=== PATIENT | male | born 1965 | race Caucasian/White ===

== ENCOUNTER → 2020-06-14 11:22 | Outpatient (CLI) | payer BC, SELFPAY ==
[2020-06-14 12:47] LABS: Basophils # 0.1 K/mm3 (0-0.2); Basophils % 1.1 % (0.1-2.0); Eosinophils # 0.1 K/mm3 (0.0-0.4); Eosinophils % 0.9 % (0.1-12.0); Hematocrit 49.6 % (42.0-52.0); Hemoglobin 16.6 g/dL (14.1-18.0); Lymphocytes # 1.5 K/mm3 (0.7-4.5); Lymphocytes % 22.2 % (10-50); Mean Corpuscular HGB Conc 33.4 g/dL (31.8-35.4); Mean Corpuscular Volume 89.8 fl (80-94); Mean Platelet Volume 7.4 fl (7.4-10.4); Monocytes # 0.6 K/mm3 (0.1-1.0); Monocytes % 9.2 % (1.7-9.3); Neutrophils # 4.6 K/mm3 (1.8-7.8); Neutrophils % 66.6 % (37.0-80.0); Platelet Count 228 K/mm3 (142-424); Red Blood Count 5.53 M/mm3 (4.60-6.20); Red Cell Distribution Width 13.3 % (11.5-17.5); White Blood Count 6.9 K/mm3 (4.8-10.8)
== END ==
PROVIDERS: PCP Family Medicine; Visit Provider Family Medicine
DX: Z20.828 Contact with and (suspected) exposure to other viral communicable diseases (principal); U07.1 COVID-19
CPT/HCPCS: 36415; 85025; 87275; 87276; U0003

== ENCOUNTER 2020-06-21 11:43 | Inpatient (IN) | payer BC, SELFPAY ==
[2020-06-21] VITALS (12 sets, daily range): BP systolic 119–144; BP diastolic 71–90; PULSE 69–99; RESP 15–20; TEMP 36.6–37.2; O2SAT 90–95; BMI 25.8; BMI 24.5
--- NOTE | 2020-06-21 12:09 | HMH.EDGENADL ---
ED Disposition Clinical Impression: COVID-19, Acute respiratory failure with hypoxia, Viral syndrome Disposition: Admitted As Inpatient Condition on Discharge: Fair Referrals: PCP,No [Primary Care Provider] - - Critical Care Critical Care Time: No Attestation: On 06/21/20, the high probability of a clinically significant, sudden or life threatening deterioration of the following system(s) required my full and direct attention, intervention and personal management. The time I documented below is in addition to time spent performing reported procedures but includes the following listed in this critical care notation. Medical Decision Making - Medical Records Medical records reviewed: Yes: I reviewed the patient's medical records. - Brooks Inquiry Pt receiving controlled substance: No Vital Signs: 06/21/20 11:43 06/21/20 12:10 06/21/20 12:32 Temperature 99.0 F Temperature Source Oral Pulse Rate [Right Radial] 95 H 99 H 85 Respiratory Rate 17 Blood Pressure [Right Arm] 123/71 142/88 H 144/90 H Blood Pressure Mean [Right Arm] 88 106 108 Blood Pressure Source [Right Arm] Automatic Cuff Automatic Cuff Blood Pressure Position [Right Arm] Sitting Sitting 02 Sat by Pulse Oximetry 92 L 92 L 90 L Oxygen Delivery Method Room Air Room Air Room Air Oxygen Flow Rate (LPM) 06/21/20 13:00 06/21/20 13:51 06/21/20 14:16 Temperature Temperature Source Pulse Rate [Right Radial] 80 80 72 Respiratory Rate Blood Pressure [Right Arm] 133/84 137/75 119/86 Blood Pressure Mean [Right Arm] 100 95 97 Blood Pressure Source [Right Arm] Automatic Cuff Automatic Cuff Automatic Cuff Blood Pressure Position [Right Arm] Sitting Sitting Sitting 02 Sat by Pulse Oximetry 93 L 92 L 92 L Oxygen Delivery Method Nasal Cannula Nasal Cannula Nasal Cannula Oxygen Flow Rate (LPM) 3 2 2 - Lab Data Lab Results 06/21/20 11:46: WBC 8.8, RBC 5.44, Hgb 16.1, Hct 47.5, MCV 87.3, MCH 29.7, MCHC 34.0, RDW 12.9, Plt Count 295, MPV 7.9, Neut % (Auto) 79.8, Lymph % (Auto) 15.4, Jay % (Auto) 4.1, Eos % (Auto) 0.1, Baso % (Auto) 0.5, Neut # (Auto) 7.1, Lymph # (Auto) 1.4, Jay # (Auto) 0.4, Eos # (Auto) 0.0, Baso # (Auto) 0.0 06/21/20 11:46: Sodium 136, Potassium 3.9, Chloride 98, Carbon Dioxide 28, Anion Gap 13.9, BUN 13, Creatinine 1.00, Estimated Creat Clear 93, Estimated GFR 78, Est GFR ( Amer) 95, Glucose 102 H, Calcium 9.5, Total Bilirubin 0.7, AST 55, ALT 66, Alkaline Phosphatase 198 H, Total Protein 8.2, Albumin 4.6, Globulin 3.6 H, Albumin/Globulin Ratio 1.3 06/21/20 11:46: SARS-CoV-2 IgG Ab (Rapid) Positive A, SARS-CoV-2 IgM Ab (Rapid) Negative Result diagrams: 06/21/20 11:46 06/21/20 11:46 Orders (Tests/Meds): ED MEDICATIONS Generic Name Dose Route Start Last Admin Trade Name Freq PRN Reason Stop Dose Admin Acetaminophen 650 mg 06/21/20 14:22 Acetaminophen 325mg Tab PO 07/21/20 14:21 Q6HP PRN Mild pain,fever,headache Ascorbic Acid 500 mg 06/21/20 17:00 Ascorbic Acid 500mg Tab PO 07/21/20 16:59 QID LUKE Enoxaparin Sodium 40 mg 06/21/20 14:30 Enoxaparin 40mg/0.4ml Syringe SQ 07/21/20 14:29 DAILY LUKE Ergocalciferol 50,000 unit 06/21/20 14:30 Ergocalciferol 50,000 Units (1.25mg) Capsule PO 07/21/20 14:29 WEEKLY LUKE Famotidine 20 mg 06/21/20 21:00 Famotidine 20mg Tablet PO 07/21/20 20:59 BID LUKE Sodium Chloride 1,000 mls @ 100 mls/hr 06/21/20 14:30 Sod Chlor 0.9% 1000ml Bag IV 07/21/20 14:29 .Q10H LUKE Levofloxacin/Dextrose 750 mg in 150 mls @ 100 mls/hr 06/21/20 14:30 Levofloxacin 750mg/150ml Premix IV 07/05/20 14:29 Q24H LUKE Protocol Zinc Sulfate 220 mg 06/21/20 14:30 Zinc Sulfate 220mg Capsule PO 07/21/20 14:29 DAILY LUKE Discontinued Medications Generic Name Dose Route Start Last Admin Trade Name Freq PRN Reason Stop Dose Admin Dexamethasone Sodium Phosphate 10 mg 06/21/20 13:42 06/21/20 14:21
[2020-06-21 12:26] LABS: Alanine Aminotransferase 66 U/L (12-78); Albumin Level 4.6 g/dl (3.5-5.0); Albumin/Globulin Ratio 1.3 (1.1-1.8); Alkaline Phosphatase 198 U/L (38-126); Anion Gap 13.9 mEq/L (5-15); Aspartate Amino Transferase 55 U/L (17-59); Basophils % 0.5 % (0.1-2.0); Bilirubin,Total 0.7 mg/dl (0.2-1.3); Blood Urea Nitrogen 13 mg/dl (9-20); Calcium 9.5 mg/dl (8.4-10.2); Carbon Dioxide 28 mmol/L (22.0-30.0); Chloride 98 mmol/L (98-107); Creatinine Clearance Estimated 93 mL/min (50-200); Eosinophils % 0.1 % (0.1-12.0); Estimated Glomerular Filt Rate 78 ml/min (>60); GFR (African American) 95 ML/MIN (>60); Globulin 3.6 g/dL (1.3-3.2); Glucose 102 mg/dl (74-100); Hematocrit 47.5 % (42.0-52.0); Hemoglobin 16.1 g/dL (14.1-18.0); Lymphocytes # 1.4 K/mm3 (0.7-4.5); Lymphocytes % 15.4 % (10-50); Mean Corpuscular Hemoglobin 29.7 pg (27.0-31.2); Mean Corpuscular Volume 87.3 fl (80-94); Mean Platelet Volume 7.9 fl (7.4-10.4); Monocytes # 0.4 K/mm3 (0.1-1.0); Monocytes % 4.1 % (1.7-9.3); Neutrophils # 7.1 K/mm3 (1.8-7.8); Neutrophils % 79.8 % (37.0-80.0); Platelet Count 295 K/mm3 (142-424); Potassium 3.9 mmoL/L (3.5-5.1); Red Blood Count 5.44 M/mm3 (4.60-6.20); Red Cell Distribution Width 12.9 % (11.5-17.5); Sodium 136 mmol/L (136-145); Total Protein,Serum 8.2 g/dl (6.3-8.2); White Blood Count 8.8 K/mm3 (4.8-10.8)
--- NOTE | 2020-06-21 13:14 | XR_ITS ---
PROCEDURE: XR CHEST PORTABLE CLINICAL HISTORY: cough Positive Covid19 COMPARISON: No exams were available for comparison FINDINGS: The cardiomediastinal silhouette and pulmonary vascularity are within normal limits. Patchy density is present in the right upper and right lower lobe and left lower lobe consistent with bilateral pneumonia. No evidence of pneumothorax. No effusions. No acute bony abnormalities. IMPRESSION: Bilateral pneumonia Dictated by: Mynor Mcnair MD 06/21/2020 15:06 Mynor Mcnair MD in [place] 06/21/2020 15:06
[2020-06-21 14:16] LABS: Coronavirus 19 IgG Antibody Positive (Negative); Coronavirus 19 IgM Antibody Negative (Negative)
--- NOTE | 2020-06-21 14:21 | PC.NURSE ---
Dr lim speaking with dr hughes
[2020-06-21 14:53] LABS: Adenovirus,PCR Not Detected (NotDetected); Bordetella Pertussis Not Detected (NotDetected); Chlamydophila Pneumoniae, PCR Not Detected (NotDetected); Coronavirus 229E Not Detected (NotDetected); Coronavirus NL63 Not Detected (NotDetected); Coronavirus OC43 Not Detected (NotDetected); Coronovirus HKU1,PCR Not Detected (NotDetected); Human Metapneumovirus Not Detected (NotDetected); Influenza A, PCR Not Detected (NotDetected); Influenza AH1, 2009 Not Detected (NotDetected); Influenza AH1, PCR Not Detected (NotDetected); Influenza AH3,PCR Not Detected (NotDetected); Influenza B, PCR Not Detected (NotDetected); Mycoplasma Pneumoniae, PCR Not Detected (NotDetected); Parainfluenza 1, PCR Not Detected (NotDetected); Parainfluenza 2, PCR Not Detected (NotDetected); Parainfluenza 3, PCR Not Detected (NotDetected); Parainfluenza 4, PCR Not Detected (NotDetected); Respiratory Syncytial Virus Not Detected (NotDetected); Rhinovirus/Enterovirus Not Detected (NotDetected)
[2020-06-21 15:25] LABS: Lactic Acid 0.7 mmol/L (0.7-2.1)
--- NOTE | 2020-06-21 15:36 | HMH.PHAVTE ---
[facility] Pharmacy VTE Monitoring - Patient Demographics Admission date: 06/21/20 Report Date: 06/21/20 Time: 15:36 Allergies/Adverse Reactions: Patient Allergies No Known Allergies Allergy (Verified 06/21/20 11:49) Height: 1.73 m Weight: 77.111 kg Patient Problems: Current Active Problems COVID-19 (Acute) Acute respiratory failure with hypoxia (Acute) Viral syndrome (Acute) - VTE Risk Labs: VTE Related Lab Results Hgb 16.1 g/dL (14.1-18.0) 06/21/20 11:46 Hct 47.5 % (42.0-52.0) 06/21/20 11:46 Plt Count 295 K/mm3 (142-424) 06/21/20 11:46 BUN 13 mg/dl (9-20) 06/21/20 11:46 Creatinine 1.00 mg/dl (0.66-1.25) 06/21/20 11:46 Estimated Creat Clear 93 mL/min (50-200) 06/21/20 11:46 - Prophylaxis VTE Prophylaxis Ordered?: Yes Types of VTE Prophylaxis: TEDS Knee High, Pharmacological Location of Applied Device: Bilateral Lower Extremeties Pharmacologic Type: Enoxaparin
--- NOTE | 2020-06-21 16:21 | HMH.HP ---
*Admission Date: 06/21/20 <Gosia Sanchez 06/21/20 16:39> *Chief complaint: headache <Gosia Sanchez 06/21/20 16:39> *History of present illness: This is a 54-year-old male presenting to the emergency department with nausea, vomiting and headache. Patient has had the symptoms for last 10 days. He was recently diagnosed with coronavirus. Since that time he has been having the symptoms. His headache is frontal in nature. Nonradiating. States it has been persistent since his diagnosis. He has also had some vomiting. There has been no hematemesis. He has had some mild diarrhea as well. He is having some abdominal cramping, however no focal tenderness. He denies any chest pain or shortness of breath. He has been having myalgias as well as fevers and chills. No cough. Denies any focal weakness, neck pain or change in vision. (above as per ER physician) The patient did do a telehealth with Dr. Fitch on 06/14/20 which is when he was tested for Covid 19. He called back on 06/19 with complaints of a MEIER and was prescribed fioricet. This did not help and he called back today and Dr. Fitch sent a medrol pack, however he could not get in contact with the patient as the patient had already gone to the ER. He was found to have bilateral pneumonia in the ER and was admitted. <Gosia Sanchez 06/21/20 16:39> [facility] History I have reviewed the patient's past medical history: Yes <Gosia Sanchez 06/21/20 16:39> Medical History: Reports:: Depression, Gastroesophageal Reflux Disease(GERD), Hyperlipidemia Denies:: Diabetes Mellitus Type 1, Diabetes Mellitus Type 2 <Gosia Sanchez 06/21/20 16:39> *Have you ever received a pneumonia vaccine?: No <Gosia Sanchez 06/21/20 16:39> *Have you received a flu vaccine this season?: Yes <Gosia Sanchez 06/21/20 16:39> Laterality Cases: Bilateral: Tonsillectomy <Gosia Sanchez 06/21/20 16:39> - *Social History Smoking Status: Never smoker <Gosia Sanchez 06/21/20 16:39> Alcohol Intake: never <Gosia Sanchez 06/21/20 16:39> *Occupational Status:: employed <Gosia Sanchez 06/21/20 16:39> *Travel in the last 8 weeks: None <Gosia Sanchez 06/21/20 16:39> Family Hx:: Hyperlipidemia <Gosia Sanchez 06/21/20 16:39> Review of Systems - Constitutional Reports chills, Reports fever(s), Reports malaise <Gosia Sanchez 06/21/20 17:04> - Eyes Denies blurry vision, Denies double vision <Gosia Sanchez 06/21/20 17:04> - ENT Denies nasal congestion, Denies sore throat <Gosia Sanchez 06/21/20 17:04> - *Cardiovascular Denies chest pain, Denies shortness of breath <Gosia Sanchez 06/21/20 17:04> - *Respiratory Denies cough, Denies shortness of breath <Gosia Sanchez 06/21/20 17:04> - *Gastrointestinal Reports loose stools, Reports nausea, Reports vomiting <Gosia Sanchez 06/21/20 17:04> - *Genitourinary Denies difficulty urinating, Denies painful urination <Gosia Sanchez 06/21/20 17:04> - *Musculoskeletal Reports body aches <Gosia Sanchez 06/21/20 17:04> - *Neurologic Reports headache(s), Reports weakness <Gosia Sanchez 06/21/20 17:04> Meds Home Medications Medication Instructions Recorded Confirmed Type Omeprazole [Omeprazole 40mg 40 mg PO DAILY 06/21/20 06/21/20 History Capsule] Sertraline HCl [Zoloft 100mg 100 mg PO DAILY 06/21/20 06/21/20 History tablet] <Beau Maddox 06/21/20 18:43> Allergies Allergy/AdvReac Type Severity Reaction Status Date / Time No Known Allergies Allergy Verified 06/21/20 11:49 <Beau Maddox - 06/21/20 18:43> Exam Vital signs and Labs for Last 24 Hours: Temp Pulse Resp BP Pulse Ox 98.2 F 72 15 128/84 95 06/21/20 16:05 06/21/20 16:05 06/21/20 16:05 06/21/20 16:05 06/21/20 16:51 Laboratory Results - last 24 hr 06/21/20 11:46: WBC 8.8, RBC 5.44, Hgb 16.1, Hct 47.5, MCV 87.3, MCH 29.7, MCHC 34.0, RDW 12.9, Plt Count 295, MPV 7.9, Neut % (Auto) 79.8, Lymp
[2020-06-21 16:38] LABS: Coronavirus 19, PCR Detected (NotDetected)
--- NOTE | 2020-06-21 18:07 | PC.NURSE ---
Patient is resting in bed. Patient appears to be in good spirits. Admitted from the ER for covid pneumonia on 2l of oxygen. Neurologically patient is alert and oriented x 4. Patient is on room air currently satting' 93%. Non-productive cough present. GI: Patients appetite has been good. No nausea/vomiting/diarrhea since coming in. : Patient has been using toilet in room. Activity: Patient is independent, ambulates well. Patient currently reports no issues or concerns. Will continue to monitor patient,
[2020-06-22] VITALS (9 sets, daily range): BP systolic 111–138; BP diastolic 73–90; PULSE 57–89; RESP 18–20; TEMP 36.3–37.4; O2SAT 90–96; BMI 24.3
[2020-06-22 05:54] LABS: Chloride 108 mmol/L (98-107); Sodium 139 mmol/L (136-145)
--- NOTE | 2020-06-22 05:56 | PC.NURSE ---
At beginning of shift pt. c/o h/a rating 8/10 (see md notification), tx with toradol, effectiveness reported. Pt. has not c/o n/v/d, or dizziness. Does report a little SOA. On 2L nc with o2 sat 92-95% while awake and 89-91% at rest. Noted to have dry, intermittent nonproductive coughing episodes with movement.
[2020-06-22 05:57] LABS: Blood Urea Nitrogen 16 mg/dl (9-20); Carbon Dioxide 25 mmol/L (22.0-30.0); Creatinine Clearance Estimated 100 mL/min (50-200); Estimated Glomerular Filt Rate 88 ml/min (>60); GFR (African American) 107 ML/MIN (>60); Glucose 117 mg/dl (74-100)
[2020-06-22 05:58] LABS: Basophils % 0.2 % (0.1-2.0); Hematocrit 40.8 % (42.0-52.0); Lymphocytes # 1.2 K/mm3 (0.7-4.5); Lymphocytes % 15.7 % (10-50); Mean Corpuscular HGB Conc 33.3 g/dL (31.8-35.4); Mean Corpuscular Hemoglobin 29.3 pg (27.0-31.2); Mean Corpuscular Volume 87.8 fl (80-94); Mean Platelet Volume 8.1 fl (7.4-10.4); Monocytes # 0.4 K/mm3 (0.1-1.0); Monocytes % 5.4 % (1.7-9.3); Neutrophils # 6.2 K/mm3 (1.8-7.8); Neutrophils % 78.7 % (37.0-80.0); Platelet Count 305 K/mm3 (142-424); Red Blood Count 4.65 M/mm3 (4.60-6.20); Red Cell Distribution Width 13.4 % (11.5-17.5); White Blood Count 7.8 K/mm3 (4.8-10.8)
[2020-06-22 06:08] LABS: Hemoglobin 13.6 g/dL (14.1-18.0)
[2020-06-22 06:19] LABS: Anion Gap 10.3 mEq/L (5-15); Potassium 4.3 mmoL/L (3.5-5.1)
[2020-06-22 06:43] LABS: Calcium 8.6 mg/dl (8.4-10.2)
--- NOTE | 2020-06-22 08:41 | HMH.ACPN2 ---
Internal Medicine - PN: Subj *Date: 06/22/20 *Time: 08:41 Interval history: Patient feels a little better this morning. He has less headache, still with some shortness of breath and cough. Exam Vital signs and Labs for Last 24 Hours: Temp Pulse Resp BP Pulse Ox 99.3 F 89 18 126/79 93 L 06/22/20 08:00 06/22/20 08:00 06/22/20 08:00 06/22/20 08:00 06/22/20 08:00 Laboratory Results - last 24 hr 06/21/20 11:46: WBC 8.8, RBC 5.44, Hgb 16.1, Hct 47.5, MCV 87.3, MCH 29.7, MCHC 34.0, RDW 12.9, Plt Count 295, MPV 7.9, Neut % (Auto) 79.8, Lymph % (Auto) 15.4, [place] % (Auto) 4.1, Eos % (Auto) 0.1, Baso % (Auto) 0.5, Neut # (Auto) 7.1, Lymph # (Auto) 1.4, [place] # (Auto) 0.4, Eos # (Auto) 0.0, Baso # (Auto) 0.0 06/21/20 11:46: Sodium 136, Potassium 3.9, Chloride 98, Carbon Dioxide 28, Anion Gap 13.9, BUN 13, Creatinine 1.00, Estimated Creat Clear 93, Estimated GFR 78, Est GFR ( Amer) 95, Glucose 102 H, Calcium 9.5, Total Bilirubin 0.7, AST 55, ALT 66, Alkaline Phosphatase 198 H, Total Protein 8.2, Albumin 4.6, Globulin 3.6 H, Albumin/Globulin Ratio 1.3 06/21/20 11:46: SARS-CoV-2 IgG Ab (Rapid) Positive A, SARS-CoV-2 IgM Ab (Rapid) Negative 06/21/20 14:40: Chlamy pneumoniae PCR Not detected, Adenovirus (PCR) Not detected, B. pertussis DNA (PCR) Not detected, Coronavirus OC43 (PCR) Not detected, Coronavirus HKU1 (PCR) Not detected, Coronavirus 229E (PCR) Not detected, SARS-CoV-2 (PCR) Detected A, Coronavirus NL63 (PCR) Not detected, Human Metapneumovir PCR Not detected, Influenza A (H1) PCR Not detected, Influ A (H1N1/09) PCR Not detected, Influenza A (H3) PCR Not detected, Influenza Type A (PCR) Not detected, Influenza Type B (PCR) Not detected, M. pneumoniae (PCR) Not detected, Parainfluenza 1 (PCR) Not detected, Parainfluenza 2 (PCR) Not detected, Parainfluenza 3 (PCR) Not detected, Parainfluenza 4 (PCR) Not detected, RSV (PCR) Not detected, Entero/Rhino (PCR) Not detected 06/21/20 14:50: Lactate 0.7 06/22/20 05:10: WBC 7.8, RBC 4.65, Hgb 13.6 L D, Hct 40.8 L, MCV 87.8, MCH 29.3, MCHC 33.3, RDW 13.4, Plt Count 305, MPV 8.1, Neut % (Auto) 78.7, Lymph % (Auto) 15.7, Henderson % (Auto) 5.4, Eos % (Auto) 0.0 L, Baso % (Auto) 0.2, Neut # (Auto) 6.2, Lymph # (Auto) 1.2, Henderson # (Auto) 0.4, Eos # (Auto) 0.0, Baso # (Auto) 0.0 06/22/20 05:10: Sodium 139, Potassium 4.3, Chloride 108 H, Carbon Dioxide 25, Anion Gap 10.3, BUN 16, Creatinine 0.90, Estimated Creat Clear 100, Estimated GFR 88, Est GFR ( Amer) 107, Glucose 117 H, Calcium 8.6 Vital Signs - 24 hr 06/21/20 11:43 06/21/20 12:10 06/21/20 12:32 Temperature 99.0 F Pulse Rate Pulse Rate [Right Radial] 95 H 99 H 85 Respiratory Rate 17 Blood Pressure Blood Pressure [Right Arm] 123/71 142/88 H 144/90 H 02 Sat by Pulse Oximetry 92 L 92 L 90 L 06/21/20 13:00 06/21/20 13:51 06/21/20 14:16 Temperature Pulse Rate Pulse Rate [Right Radial] 80 80 72 Respiratory Rate Blood Pressure Blood Pressure [Right Arm] 133/84 137/75 119/86 02 Sat by Pulse Oximetry 93 L 92 L 92 L 06/21/20 15:00 06/21/20 15:30 06/21/20 16:00 Temperature 98.9 F Pulse Rate Pulse Rate [Right Radial] 71 72 69 Respiratory Rate 20 Blood Pressure Blood Pressure [Right Arm] 127/81 128/84 137/86 02 Sat by Pulse Oximetry 93 L 93 L 93 L 06/21/20 16:05 06/21/20 16:51 06/21/20 20:00 Temperature 98.2 F 97.9 F Pulse Rate 72 Pulse Rate [Right Radial] 75 Respiratory Rate 15 20 Blood Pressure 128/84 Blood Pressure [Right Arm] 120/79 02 Sat by Pulse Oximetry 95 93 L 06/22/20 00:00 06/22/20 04:00 06/22/20 06:52 Temperature 97.6 F 98.7 F Pulse Rate Pulse Rate [Right Radial] 57 L 66 Respiratory Rate 20 20 Blood Pressure Blood Pressure [Right Arm] 111/73 138/90 02 Sat by Pulse Oximetry 96 96 92 L 06/22/20 08:00 Temperature 99.3 F Pulse Rate Pulse Rate [Right Radial] 89 Respiratory Rate 18 Blood Pressure Blood Pressure [Right Arm] 126/79 02 Sat by Puls
--- NOTE | 2020-06-22 17:01 | HMH.PHAINT ---
MEDICATION RECONCILIATION COMPLETED ON PATIENT USING EXTERNAL FILL HISTORY FROM PHARMACY. -MARISSA GRUBBS, GITAD
--- NOTE | 2020-06-22 17:34 | PC.NURSE ---
Pt is alert and oriented and able to make needs known. RR even and unlabored. NAD. CB in reach. REmains on 1.5 L NC at this time. Lungs cta, S1,S2. No bm thus far today, states he has passed flatus. Remains safe. Pt states he had a small nose bleed- which has subsided at this time. Will cont to mx. No edema noted. PRN tylenol given x 2 per mar r/t harmon. VSS Last pressure 128/87
[2020-06-23 04:00] VITALS: BP 125/83; PULSE 79; RESP 20; TEMP 37.2; O2SAT 90
--- NOTE | 2020-06-23 04:57 | PC.NURSE ---
Pt A&OX4 diminished t/o. Pt remains on RA with O2 sats 90-91. pt medicated for MEIER per SEP. pt voids per urinal. pt has rested quietly
[2020-06-23 05:11] VITALS: BMI 24.3
[2020-06-23 08:00] VITALS: BP 136/87; PULSE 80; RESP 20; TEMP 36.7; O2SAT 91
[2020-06-23 11:05] VITALS: BP 145/88; PULSE 70; RESP 20; TEMP 36.9; O2SAT 91
--- NOTE | 2020-06-23 12:33 | HMH.ACPN2 ---
Internal Medicine - PN: Subj *Date: 06/23/20 *Time: 12:45 Interval history: Patient still has some SOB and O2 level drops with any exertion. Headache has improved a little, but still present. Exam Vital signs and Labs for Last 24 Hours: Temp Pulse Resp BP Pulse Ox 98.4 F 70 20 145/88 H 91 L 06/23/20 11:05 06/23/20 11:05 06/23/20 11:05 06/23/20 11:05 06/23/20 11:05 Vital Signs - 24 hr 06/22/20 16:00 06/22/20 19:39 06/22/20 20:00 Temperature 97.5 F L 98.8 F Pulse Rate [Right Radial] 74 74 Respiratory Rate 18 18 Blood Pressure [Right Arm] 128/87 133/90 02 Sat by Pulse Oximetry 94 L 90 L 90 L 06/22/20 23:53 06/23/20 04:00 06/23/20 08:00 Temperature 98.0 F 99.0 F 98.1 F Pulse Rate [Right Radial] 79 79 80 Respiratory Rate 18 20 20 Blood Pressure [Right Arm] 124/87 125/83 136/87 02 Sat by Pulse Oximetry 90 L 90 L 91 L 06/23/20 11:05 Temperature 98.4 F Pulse Rate [Right Radial] 70 Respiratory Rate 20 Blood Pressure [Right Arm] 145/88 H 02 Sat by Pulse Oximetry 91 L I & O for Last 24 hours: Intake & Output 06/20/20 06/21/20 06/22/20 06/23/20 23:59 23:59 23:59 23:59 Intake Total 600 / 600 2645 / 2645 360 / 360 Output Total 825 / 1025 2024 700 / 700 Balance -225 / -425 620 / 620 -340 / -340 Weight 166 lb 4 oz 164 lb 9 oz 164 lb 5 oz - Constitutional no acute distress - *Routine HEENT Exam Head: Present: normocephalic Eye: Present: EOMI, PERRL ENT: Present: mucous membranes moist - *Routine Neck Exam Present: supple. Absent: lymphadenopathy - *Routine Respiratory Exam Present: crackles (few bibasilar). Absent: wheezes - *Routine Cardiovascular Exam Present: RRR - *Routine Abdominal Exam Present: soft, normoactive bowel sounds. Absent: tenderness - *Routine Extremities Exam Absent: cyanosis, clubbing, edema - *Routine Skin Exam Present: warm. Absent: rash - *Routine Neurological Exam Present: alert, oriented X3 Assessment and Plan (1) Bilateral pneumonia Status: Acute Category: Medical Code(s): J18.9 - Pneumonia, unspecified organism (2) COVID-19 Status: Acute Category: Medical Code(s): U07.1 - COVID-19 (3) Headache Status: Acute Category: Medical Code(s): R51.9 - Headache, unspecified (4) Viral syndrome Status: Acute Category: Medical Code(s): B34.9 - Viral infection, unspecified (5) Hypoxia Status: Acute Category: Medical Code(s): R09.02 - Hypoxemia - Assessment and plan all Dx Assessment and Plan for all problems:: Patient is slowly improving, continue current care, will add Tramadol as needed for headache.
--- NOTE | 2020-06-23 12:40 | PC.NURSE ---
This nurse made Dr. Maddox aware that pt was still c/o of a headache and states it is constant and dull. MD stated he would order something else since prn tylenol doesnt seem to be helping much. Pt states he has also been having small nose bleeds, Dr. Maddox also made aware of this. Remains on RA at this time. Remains safe, will cont to mx.
[2020-06-23 16:00] VITALS: BP 129/89; PULSE 63; RESP 20; TEMP 36.8; O2SAT 91
--- NOTE | 2020-06-23 18:07 | PC.NURSE ---
Pt is alert and oriented and able to make needs known. Remains of ra at this time and is currently 93%. Have given pt bath basin and soap, deodorant,towels,washcloths and gown to bath- he is able to do so independently. Pt has ate small amts this shift and tolerating po fluids well. PRN tramadol given per mar x 2. VSS at this time. Lungs cta, no bm- abd soft and non tender. No edema. S1 and S2 noted. CB in reach. Remains safe.
[2020-06-23 20:00] VITALS: BP 119/85; PULSE 54; RESP 19; TEMP 36.2; O2SAT 90
[2020-06-24] VITALS (10 sets, daily range): BP systolic 120–141; BP diastolic 87–90; PULSE 54–65; RESP 16–20; TEMP 36.1–36.7; O2SAT 87–94; BMI 24.2; BMI 24.1
--- NOTE | 2020-06-24 06:01 | PC.NURSE ---
Pt is A&Ox4 and has not ambulated OOB t/o shift. Pt denies the need to urinate and reports he feels very tired. Pt has continued to c/o headache t/o shift, medicated per MAR with tramadol with good relief. Pt denies any N/V/D, just reports not hungry . Pt slept well t.o the night. Pt did desat to 86% on room air and placed on NC at 1LPM O2 with good results back to low 90's. No edema noted. Very faint crackles noted to bases, clear anterior. Pt able to reach 2300ml on IS and has a good cough response. Pt denies any productive sputum this shift. Pt's HR has bee a little low this shift, mid 40s-50s while asleep. DBP has been upper 80s-90s. Pt denies any h/o HTN or bradycardia. Pt encouraged to have good PO intake. Pt's weight is about 1# less than yesterday on daily weight. Call light within reach.
[2020-06-24 06:57] LABS: Basophils # 0.1 K/mm3 (0-0.2); Basophils % 0.8 % (0.1-2.0); Chloride 104 mmol/L (98-107); Eosinophils # 0.2 K/mm3 (0.0-0.4); Eosinophils % 2.7 % (0.1-12.0); Hematocrit 42.9 % (42.0-52.0); Hemoglobin 14.6 g/dL (14.1-18.0); Lymphocytes # 1.9 K/mm3 (0.7-4.5); Lymphocytes % 28.3 % (10-50); Mean Corpuscular Hemoglobin 29.4 pg (27.0-31.2); Mean Corpuscular Volume 86.4 fl (80-94); Mean Platelet Volume 7.9 fl (7.4-10.4); Monocytes # 0.5 K/mm3 (0.1-1.0); Neutrophils # 3.9 K/mm3 (1.8-7.8); Neutrophils % 60.2 % (37.0-80.0); Platelet Count 474 K/mm3 (142-424); Red Blood Count 4.96 M/mm3 (4.60-6.20); Red Cell Distribution Width 13.2 % (11.5-17.5); Sodium 139 mmol/L (136-145); White Blood Count 6.5 K/mm3 (4.8-10.8)
[2020-06-24 07:00] LABS: Blood Urea Nitrogen 15 mg/dl (9-20); Creatinine Clearance Estimated 113 mL/min (50-200); Estimated Glomerular Filt Rate 101 ml/min (>60); GFR (African American) 122 ML/MIN (>60)
[2020-06-24 07:01] LABS: Calcium 9.1 mg/dl (8.4-10.2); Carbon Dioxide 28 mmol/L (22.0-30.0); Glucose 112 mg/dl (74-100)
--- NOTE | 2020-06-24 09:04 | HMH.ACPN2 ---
Internal Medicine - PN: Subj *Date: 06/24/20 *Time: 09:04 Interval history: Patient states he feels a little worse this morning. He is having more headache and nausea. O2 sat was low once overnight and supplemental oxygen was resumed. It has been weaned back off this morning. Exam Vital signs and Labs for Last 24 Hours: Temp Pulse Resp BP Pulse Ox 97.1 F L 63 18 141/90 H 93 L 06/24/20 08:25 06/24/20 08:27 06/24/20 08:27 06/24/20 08:25 06/24/20 08:27 Laboratory Results - last 24 hr 06/24/20 05:50: WBC 6.5, RBC 4.96, Hgb 14.6, Hct 42.9, MCV 86.4, MCH 29.4, MCHC 34.0, RDW 13.2, Plt Count 474 H D, MPV 7.9, Neut % (Auto) 60.2, Lymph % (Auto) 28.3, [place] % (Auto) 8.0, Eos % (Auto) 2.7, Baso % (Auto) 0.8, Neut # (Auto) 3.9, Lymph # (Auto) 1.9, [place] # (Auto) 0.5, Eos # (Auto) 0.2, Baso # (Auto) 0.1 06/24/20 05:50: Sodium 139, Potassium 4.0, Chloride 104, Carbon Dioxide 28, Anion Gap 11.0, BUN 15, Creatinine 0.80, Estimated Creat Clear 113, Estimated GFR 101, Est GFR ( Amer) 122, Glucose 112 H, Calcium 9.1 Vital Signs - 24 hr 06/23/20 11:05 06/23/20 16:00 06/23/20 20:00 Temperature 98.4 F 98.2 F 97.1 F L Pulse Rate [Apical] Pulse Rate [Right Radial] 70 63 54 L Respiratory Rate 20 20 19 Blood Pressure [Right Arm] 145/88 H 129/89 119/85 02 Sat by Pulse Oximetry 91 L 91 L 90 L 06/24/20 00:00 06/24/20 01:00 06/24/20 01:01 Temperature 97.7 F Pulse Rate [Apical] Pulse Rate [Right Radial] 65 Respiratory Rate 20 Blood Pressure [Right Arm] 120/87 02 Sat by Pulse Oximetry 91 L 87 L 93 L 06/24/20 04:00 06/24/20 08:25 06/24/20 08:27 Temperature 98.1 F 97.1 F L Pulse Rate [Apical] 63 Pulse Rate [Right Radial] 54 L 63 Respiratory Rate 18 18 18 Blood Pressure [Right Arm] 135/90 141/90 H 02 Sat by Pulse Oximetry 92 L 93 L 93 L I & O for Last 24 hours: Intake & Output 06/21/20 06/22/20 06/23/20 06/24/20 23:59 23:59 23:59 23:59 Intake Total 600 / 600 2645 / 2645 950 / 1350 520 / 520 Output Total 825 / 1025 2025 / 2025 1250 / 1250 Balance -225 / -425 620 / 620 -300 / 100 520 / 520 Weight 166 lb 4 oz 164 lb 9 oz 164 lb 5 oz 163 lb 6.4 oz - Constitutional no acute distress - *Routine HEENT Exam Head: Present: normocephalic Eye: Present: EOMI, PERRL ENT: Present: mucous membranes moist - *Routine Neck Exam Present: supple. Absent: lymphadenopathy - *Routine Respiratory Exam Present: crackles (bilateral). Absent: wheezes - *Routine Cardiovascular Exam Present: RRR - *Routine Abdominal Exam Present: soft, normoactive bowel sounds. Absent: tenderness - *Routine Extremities Exam Absent: cyanosis, clubbing, edema - *Routine Skin Exam Present: warm. Absent: rash - *Routine Neurological Exam Present: alert, oriented X3 Assessment and Plan (1) Bilateral pneumonia Status: Acute Category: Medical Code(s): J18.9 - Pneumonia, unspecified organism (2) COVID-19 Status: Acute Category: Medical Code(s): U07.1 - COVID-19 (3) Headache Status: Acute Category: Medical Code(s): R51.9 - Headache, unspecified (4) Viral syndrome Status: Acute Category: Medical Code(s): B34.9 - Viral infection, unspecified (5) Hypoxia Status: Acute Category: Medical Code(s): R09.02 - Hypoxemia - Assessment and plan all Dx Assessment and Plan for all problems:: Plan to repeat CXR today, continue current treatment.
--- NOTE | 2020-06-24 09:07 | XR_ITS ---
PROCEDURE: XR CHEST PORTABLE CLINICAL HISTORY: Pneumonia Follow-up Covid19 pneumonia COMPARISON: CR XR CHEST PORTABLE from 06/21/2020 FINDINGS: The cardiomediastinal silhouette and pulmonary vascularity are within normal limits. Right upper lobe, right lower lobe, and left lower lobe pneumonia once again noted overall not significantly changed considering some difference in technique and inspiration. No evidence of pneumothorax or effusion. No acute bony abnormalities. IMPRESSION: No change bilateral pneumonia Dictated by: Mynor Mcnair MD 06/24/2020 10:05 Mynor Mcnair MD in [facility] 06/24/2020 10:05
--- NOTE | 2020-06-24 17:20 | PC.NURSE ---
Addendum entered by Estrellita Wyatt RN 06/24/20 17:58: Specimen cup at bedside. Pt instructed to provide a sputum specimen. Attempts thus far have been unsuccessful. Original Note: Pt has been pleasant and cooperative this shift. A&O X4. No complaints of SOA. Pt has had frequent complaints of a headache and has been alternating Tylenol and Tramadol. Pt reports some relief, although headache is still present. Pt has also complained of mild nausea and one episode of vomiting. Pt has been medicated with Zofran per MAR with favorable results. Pt ambulates independently to/from the bathroom and throughout the room. Pt uses the urinal/toilet to void clear, dark antonia-colored urine without issue. Pt reports 1 episode of diarrhea this shift. Pt had to be placed on O2 via NC @ 2 LPM for a brief period today due to O2 sats. <90%. Pt is currently on room air with O2 sats. >90%. Lung sounds reveal faint expiratory rhonchi. Skin is C/D/I. No edema noted. Pt remains afebrile. Appetite is poor and pt only eats about 10-20% of all meals. 20 G peripheral IV in the LT AC is patent and SL. VSS. Call light within reach. Will continue to monitor.
[2020-06-25] VITALS (7 sets, daily range): BP systolic 108–125; BP diastolic 62–83; PULSE 57–69; RESP 16–17; TEMP 35.9–37.1; O2SAT 91–92; BMI 24.1
--- NOTE | 2020-06-25 08:41 | HMH.ACPN2 ---
Internal Medicine - PN: Subj *Date: 06/25/20 *Time: 08:41 Interval history: Patient with no new complaints this morning. He actually feels a little better, still with a headache. He did not need supplemental oxygen overnight. Levaquin was stopped yesterday afternoon and Rocephin and Zithromax were started. Exam Vital signs and Labs for Last 24 Hours: Temp Pulse Resp BP Pulse Ox 96.6 F L 60 16 122/81 91 L 06/25/20 07:36 06/25/20 07:36 06/25/20 07:36 06/25/20 07:36 06/25/20 07:36 Vital Signs - 24 hr 06/24/20 11:23 06/24/20 16:32 06/24/20 20:00 Temperature 97.9 F 96.9 F L 97.5 F L Pulse Rate [Apical] Pulse Rate [Right Radial] 62 61 61 Respiratory Rate 16 18 18 Blood Pressure [Right Arm] 134/88 134/88 126/90 02 Sat by Pulse Oximetry 90 L 94 L 92 L 06/24/20 20:30 06/25/20 00:00 06/25/20 04:00 Temperature 97.6 F 98.7 F Pulse Rate [Apical] Pulse Rate [Right Radial] 61 64 61 Respiratory Rate 18 16 16 Blood Pressure [Right Arm] 115/81 109/76 L 02 Sat by Pulse Oximetry 92 L 92 L 92 L 06/25/20 07:36 Temperature 96.6 F L Pulse Rate [Apical] 60 Pulse Rate [Right Radial] Respiratory Rate 16 Blood Pressure [Right Arm] 122/81 02 Sat by Pulse Oximetry 91 L I & O for Last 24 hours: Intake & Output 06/22/20 06/23/20 06/24/20 06/25/20 23:59 23:59 23:59 23:59 Intake Total 2645 / 2645 950 / 1350 1230 / 1230 Output Total 2024 / 2024 1250 / 1250 300 / 300 Balance 620 / 620 -300 / 100 930 / 930 Weight 164 lb 9 oz 164 lb 5 oz 163 lb 2.273 oz 163 lb 1 oz - Constitutional no acute distress - *Routine HEENT Exam Head: Present: normocephalic Eye: Present: EOMI, PERRL ENT: Present: mucous membranes moist - *Routine Neck Exam Present: supple. Absent: lymphadenopathy - *Routine Respiratory Exam Present: rales (bilateral, seems to have fewer today) - *Routine Cardiovascular Exam Present: RRR - *Routine Abdominal Exam Present: soft, normoactive bowel sounds. Absent: tenderness - *Routine Extremities Exam Absent: cyanosis, clubbing, edema - *Routine Skin Exam Present: warm. Absent: rash - *Routine Neurological Exam Present: alert, oriented X3 Assessment and Plan (1) Bilateral pneumonia Status: Acute Category: Medical Code(s): J18.9 - Pneumonia, unspecified organism (2) COVID-19 Status: Acute Category: Medical Code(s): U07.1 - COVID-19 (3) Headache Status: Acute Category: Medical Code(s): R51.9 - Headache, unspecified (4) Viral syndrome Status: Acute Category: Medical Code(s): B34.9 - Viral infection, unspecified (5) Hypoxia Status: Acute Category: Medical Code(s): R09.02 - Hypoxemia - Assessment and plan all Dx Assessment and Plan for all problems:: Patient seems to be slowly improving. Antibiotics changed yesterday after CXR was unchanged, no change in treatment today.
--- NOTE | 2020-06-25 11:40 | HMH.PHAINT ---
DR. TOBIN DOES WANT THIS PATIENT TO CONTINUE REMDESIVIR FOR DAYS 5-10. SPOKE WITH YONNY AT [facility].
--- NOTE | 2020-06-25 17:31 | PC.NURSE ---
Pt has been pleasant and cooperative this shift. A&O X4. No complaints of SOA. Pt has had frequent complaints of a headache and has been alternating Tylenol and Tramadol. Received order for Fioricet per Dr. Maddox and pt reports significant relief. Pt ambulates independently to/from the bathroom and throughout the room. Pt uses the urinal/toilet to void clear, dark antonia-colored urine without issue. No emesis this shift. No diarrhea this shift. Pt has remained on room air for the entire shift thus far with O2 sats. >90%. Lung sounds reveal faint expiratory rhonchi. Skin is C/D/I. No edema noted. Pt remains afebrile. Appetite has improved and pt has eaten approximately 50% of all meals today. Specimen cup still at bedside and pt attempts to provide sputum specimen have been unsuccessful. 20 G peripheral IV in the LT AC is patent and SL. VSS. Call light within reach. Will continue to monitor.
[2020-06-26] VITALS: BP 106/74; PULSE 67; RESP 16; TEMP 36.7; O2SAT 92
[2020-06-26 04:00] VITALS: BP 115/78; PULSE 61; RESP 16; TEMP 36.7; O2SAT 92
--- NOTE | 2020-06-26 04:20 | PC.NURSE ---
pt has rested well t/o shift, complained of headache at beginning of shift, treated per MAR with fiorcet with good results, no complaints of SOA or chest pain, remained on room air with O2 sat of 92%, has remained afebrile
[2020-06-26 05:00] VITALS: BMI 24.1
--- NOTE | 2020-06-26 05:23 | PC.NURSE ---
pt did complain of a headache this morning when labs were being drawn, was treated per MAR
[2020-06-26 05:39] LABS: Basophils # 0.1 K/mm3 (0-0.2); Basophils % 1.1 % (0.1-2.0); Eosinophils # 0.2 K/mm3 (0.0-0.4); Eosinophils % 3.1 % (0.1-12.0); Hematocrit 42.5 % (42.0-52.0); Hemoglobin 14.6 g/dL (14.1-18.0); Lymphocytes # 2.3 K/mm3 (0.7-4.5); Lymphocytes % 30.1 % (10-50); Mean Corpuscular HGB Conc 34.3 g/dL (31.8-35.4); Mean Corpuscular Hemoglobin 29.6 pg (27.0-31.2); Mean Corpuscular Volume 86.4 fl (80-94); Mean Platelet Volume 7.1 fl (7.4-10.4); Monocytes # 0.6 K/mm3 (0.1-1.0); Monocytes % 7.1 % (1.7-9.3); Neutrophils # 4.5 K/mm3 (1.8-7.8); Neutrophils % 58.6 % (37.0-80.0); Platelet Count 624 K/mm3 (142-424); Red Blood Count 4.92 M/mm3 (4.60-6.20); Red Cell Distribution Width 13.3 % (11.5-17.5); White Blood Count 7.7 K/mm3 (4.8-10.8)
[2020-06-26 05:44] LABS: Chloride 105 mmol/L (98-107); Potassium 4.5 mmoL/L (3.5-5.1); Sodium 139 mmol/L (136-145)
[2020-06-26 05:47] LABS: Anion Gap 10.5 mEq/L (5-15); Blood Urea Nitrogen 16 mg/dl (9-20); Carbon Dioxide 28 mmol/L (22.0-30.0); Creatinine Clearance Estimated 99 mL/min (50-200); Estimated Glomerular Filt Rate 88 ml/min (>60); GFR (African American) 107 ML/MIN (>60)
[2020-06-26 05:48] LABS: Calcium 8.9 mg/dl (8.4-10.2); Glucose 95 mg/dl (74-100)
--- NOTE | 2020-06-26 06:37 | SW/DCPLANNER ---
PATIENT REMAINS IN THE COVID UNIT, HE IS DOING WELL OTHER THAN DR TOBIN WANTS AN IMPROVEMENT WITH HIS CHEST XRAY... PATIENT IS GAINFULLY EMPLOYED AND THE PLAN IS FOR HIM TO RETURN BACK HOME WITH HIS FAMILY ONCE HE IS DISCHARGED.. PATIENT IS NOT NEEDING ANY SUPPLEMENTAL OXYGEN.. PATIENT IS CLOSE TO BEING READY FOR A DISPOSITION.. DO NOT THINK HE IS GOING TO NEED ANYTHING POST DISCHARGE...
--- NOTE | 2020-06-26 07:00 | XR_ITS ---
PROCEDURE: XR CHEST PORTABLE CLINICAL HISTORY: bilateral pneumonia, Covid COMPARISON: CR XR CHEST PORTABLE from 06/21/2020 CR XR CHEST PORTABLE from 06/24/2020 FINDINGS: The cardiomediastinal silhouette and pulmonary vascularity are within normal limits. Patchy consolidation right upper lobe right lower lobe and left lower lobe once again noted overall not significantly changed. No effusions or pneumothorax. No acute bony abnormalities. IMPRESSION: No change bilateral pneumonia Dictated by: Mynor Mcnair MD 06/26/2020 06:06 Mynor Mcnair MD in [place] 06/26/2020 06:06
[2020-06-26 08:00] VITALS: BP 123/77; PULSE 73; RESP 18; TEMP 37; O2SAT 89
[2020-06-26 10:16] VITALS: O2SAT 91
--- NOTE | 2020-06-26 10:23 | HMH.ACPN2 ---
Internal Medicine - PN: Subj *Date: 06/26/20 *Time: 10:23 Interval history: Patient with no new complaints today, still has a slight headache and cough, did not need supplemental oxygen overnight. Exam Vital signs and Labs for Last 24 Hours: Temp Pulse Resp BP Pulse Ox 98.6 F 73 18 123/77 91 L 06/26/20 08:00 06/26/20 08:00 06/26/20 08:00 06/26/20 08:00 06/26/20 10:16 Laboratory Results - last 24 hr 06/26/20 05:20: WBC 7.7, RBC 4.92, Hgb 14.6, Hct 42.5, MCV 86.4, MCH 29.6, MCHC 34.3, RDW 13.3, Plt Count 624 H D, MPV 7.1 L, Neut % (Auto) 58.6, Lymph % (Auto) 30.1, [place] % (Auto) 7.1, Eos % (Auto) 3.1, Baso % (Auto) 1.1, Neut # (Auto) 4.5, Lymph # (Auto) 2.3, [place] # (Auto) 0.6, Eos # (Auto) 0.2, Baso # (Auto) 0.1 06/26/20 05:20: Sodium 139, Potassium 4.5, Chloride 105, Carbon Dioxide 28, Anion Gap 10.5, BUN 16, Creatinine 0.90, Estimated Creat Clear 99, Estimated GFR 88, Est GFR ( Amer) 107, Glucose 95, Calcium 8.9 Vital Signs - 24 hr 06/25/20 11:28 06/25/20 16:00 06/25/20 20:00 Temperature 97.4 F L 97.2 F L 98.3 F Pulse Rate [Apical] 69 57 L Pulse Rate [Right Radial] 60 Respiratory Rate 16 16 17 Blood Pressure [Right Arm] 108/77 L 125/83 110/62 02 Sat by Pulse Oximetry 91 L 92 L 92 L 06/26/20 00:00 06/26/20 04:00 06/26/20 08:00 Temperature 98.1 F 98.1 F 98.6 F Pulse Rate [Apical] 73 Pulse Rate [Right Radial] 67 61 Respiratory Rate 16 16 18 Blood Pressure [Right Arm] 106/74 L 115/78 123/77 02 Sat by Pulse Oximetry 92 L 92 L 89 L 06/26/20 10:16 Temperature Pulse Rate [Apical] Pulse Rate [Right Radial] Respiratory Rate Blood Pressure [Right Arm] 02 Sat by Pulse Oximetry 91 L I & O for Last 24 hours: Intake & Output 06/23/20 06/24/20 06/25/20 06/26/20 23:59 23:59 23:59 23:59 Intake Total 950 / 1350 1230 / 1230 920 / 1160 720 / 720 Output Total 1250 / 1250 300 / 300 Balance -300 / 100 930 / 930 920 / 1160 720 / 720 Weight 164 lb 5 oz 163 lb 2.273 oz 163 lb 1 oz 163 lb - Constitutional no acute distress - *Routine HEENT Exam Head: Present: normocephalic Eye: Present: EOMI, PERRL ENT: Present: mucous membranes moist - *Routine Neck Exam Present: supple. Absent: lymphadenopathy - *Routine Respiratory Exam Present: crackles (bibasilar, fewer today over all) - *Routine Cardiovascular Exam Present: RRR - *Routine Abdominal Exam Present: soft, normoactive bowel sounds. Absent: tenderness - *Routine Extremities Exam Absent: cyanosis, clubbing, edema - *Routine Skin Exam Present: warm. Absent: rash - *Routine Neurological Exam Present: alert, oriented X3 Assessment and Plan (1) Bilateral pneumonia Status: Acute Category: Medical Code(s): J18.9 - Pneumonia, unspecified organism (2) COVID-19 Status: Acute Category: Medical Code(s): U07.1 - COVID-19 (3) Headache Status: Acute Category: Medical Code(s): R51.9 - Headache, unspecified (4) Viral syndrome Status: Acute Category: Medical Code(s): B34.9 - Viral infection, unspecified (5) Hypoxia Status: Acute Category: Medical Code(s): R09.02 - Hypoxemia - Assessment and plan all Dx Assessment and Plan for all problems:: Patient has been off of supplemental oxygen for 48 hours. OK for discharge home today with continued treatment for pneumonia as an outpatient. Spoke to patient and his by phone about his continued quarantine at home. He will f/u by phone in a few days and in a few weeks in the office.
[2020-06-26 11:00] VITALS: O2SAT 92
[2020-06-26 12:00] VITALS: BP 94/58; PULSE 63; RESP 16; TEMP 37; O2SAT 91
--- NOTE | 2020-06-26 16:08 | HMH.DCSUM ---
General - General Admission date:: 06/21/20 Discharge date: 06/26/20 HPI HPI: This is a 54-year-old male presenting to the emergency department with nausea, vomiting and headache. Patient has had the symptoms for last 10 days. He was recently diagnosed with coronavirus. Since that time he has been having the symptoms. His headache is frontal in nature. Nonradiating. States it has been persistent since his diagnosis. He has also had some vomiting. There has been no hematemesis. He has had some mild diarrhea as well. He is having some abdominal cramping, however no focal tenderness. He denies any chest pain or shortness of breath. He has been having myalgias as well as fevers and chills. No cough. Denies any focal weakness, neck pain or change in vision. (above as per ER physician) The patient did do a telehealth with Dr. Fitch on 06/14/20 which is when he was tested for Covid 19. He called back on 06/19 with complaints of a MEIER and was prescribed fioricet. This did not help and he called back today and Dr. Fitch sent a medrol pack, however he could not get in contact with the patient as the patient had already gone to the ER. He was found to have bilateral pneumonia in the ER and was admitted. Hospital Course Hospital Course: The patient's chest x-ray showed bilateral pneumonia and his Covid test was positive. He was started on COVID-19 protocol along with Levaquin for his pneumonia and admitted to the Covid unit. His headache did improve but he developed some shortness of breath and a cough. He was placed on oxygen as his levels dropped. Tramadol was added for his headache. He was able to be weaned off of his oxygen but his sats dropped again and he had to be placed back on supplemental oxygen. A repeat chest x-ray was ordered showing no change in his bilateral pneumonia. He was able to be weaned off of his supplemental oxygen again. His Levaquin was discontinued and he was started on Rocephin and Zithromax. He had another chest x-ray which showed no change in his pneumonia, however he did feel better with only a slight headache and a cough. He was stable to be discharged home as he had been off of supplemental oxygen for 48 hours. He will continue to quarantine at home and follow-up via phone in a few days. He was discharged home on Omnicef, Zithromax, dexamethasone, vitamin C, vitamin D and zinc. Objective Vital signs: Temp Pulse Resp BP Pulse Ox 98.6 F 63 16 94/58 L 91 L 06/26/20 12:00 06/26/20 12:00 06/26/20 12:00 06/26/20 12:00 06/26/20 12:00 Narrative: - Constitutional no acute distress - *Routine HEENT Exam Head: Present: normocephalic Eye: Present: EOMI, PERRL ENT: Present: mucous membranes dry - *Routine Neck Exam Present: supple. Absent: lymphadenopathy - *Routine Respiratory Exam Present: CTA bilaterally - *Routine Cardiovascular Exam Present: RRR - *Routine Abdominal Exam Present: soft, normoactive bowel sounds. Absent: tenderness - *Routine Extremities Exam Absent: cyanosis, clubbing, edema - *Routine Skin Exam Present: warm. Absent: rash - *Routine Neurological Exam Present: alert, oriented X3 Results Labs on day of discharge: Labs from last 24 hours 06/26/20 06/26/20 05:20 05:20 WBC 7.7 RBC 4.92 Hgb 14.6 Hct 42.5 MCV 86.4 MCH 29.6 MCHC 34.3 RDW 13.3 Plt Count 624 H D MPV 7.1 L Neut % (Auto) 58.6 Lymph % (Auto) 30.1 [place] % (Auto) 7.1 Eos % (Auto) 3.1 Baso % (Auto) 1.1 Neut # (Auto) 4.5 Lymph # (Auto) 2.3 [place] # (Auto) 0.6 Eos # (Auto) 0.2 Baso # (Auto) 0.1 Sodium 139 Potassium 4.5 Chloride 105 Carbon Dioxide 28 Anion Gap 10.5 BUN 16 Creatinine 0.90 Estimated Creat Clear 99 Estimated GFR 88 Est GFR ( Amer) 107 Glucose 95 Calcium 8.9 DS: Diagnosis - Discharge Diagnosis (1) Bilateral pneumonia Status: Ac
== END 2020-06-26 14:50 | disposition home or self-care (01) | DRG 177 ==
LOC: ER 14:35 → ICU 15:01
PROVIDERS: Admitting Provider Family Medicine; Emergency Provider Emergency Medicine; Visit Provider Family Medicine
DX: U07.1 COVID-19 (principal); J12.89 Other viral pneumonia; J18.9 Pneumonia, unspecified organism; J96.01 Acute respiratory failure with hypoxia; Z79.899 Other long term (current) drug therapy
CPT/HCPCS: 36415; 71045; 80048; 80053; 83605; 85025; 86328; 87581; 87633; 87798; 94761; 96365; 96367; 96375; 99285; J1956; J2405

== ENCOUNTER → 2020-07-05 11:15 | Outpatient (CLI) | payer BC, SELFPAY ==
[2020-07-05 12:39] LABS: Coronavirus 19 IgG Antibody Positive (Negative); Coronavirus 19 IgM Antibody Negative (Negative)
== END ==
PROVIDERS: PCP Family Medicine; Visit Provider Family Medicine
DX: Z20.828 Contact with and (suspected) exposure to other viral communicable diseases (principal); Z86.19 Personal history of other infectious and parasitic diseases
CPT/HCPCS: 86328

== ENCOUNTER → 2020-07-15 10:15 | Outpatient (CLI) | payer BC, SELFPAY ==
--- NOTE | 2020-07-15 10:24 | XR_ITS ---
PROCEDURE: XR CHEST 2V CLINICAL HISTORY: SOB,H/O CORONOVIRUS 06/07 COMPARISON: CR XR CHEST PORTABLE from 06/26/2020 FINDINGS: The cardiomediastinal silhouette and pulmonary vascularity are within normal limits. The bilateral lower lobe ill-defined pneumonic infiltrate seen on the previous portable chest film essentially resolved though there may be minimal postinflammatory scarring at the left base. Minimal infiltrate versus scarring is seen in the right suprahilar region and extending into the anterior segment right upper lobe. No pleural fluid. IMPRESSION: Definite interval improvement the previous portable chest film question minimal infiltrate and/or scarring remaining at the left base and right upper lobe Dictated by: Dr. Chan Collins MD 07/15/2020 10:39 Dr. Chan Collins MD in [place] 07/15/2020 10:39
== END ==
PROVIDERS: PCP Family Medicine; Visit Provider Family Medicine
DX: R06.02 Shortness of breath (principal); Z86.19 Personal history of other infectious and parasitic diseases
CPT/HCPCS: 71046

== ENCOUNTER → 2020-07-17 09:43 | Outpatient (CLI) | payer BC, SELFPAY ==
--- NOTE | 2020-07-17 09:54 | CA_ITS ---
APPROVED REPORT EXAM: Comprehensive 2D, Doppler, and color-flow Echocardiogram A/C Technician: Anabella Lopez RT(R) Ht: 5 ft 8 in Wt: 170lbs BSA: 1.91 BP: 144/90 mmHg Indications: palpitations, fatigue, SOB, hyperlipidemia, recent COVID 06/07, GERD 2D Dimensions LVOT 2.01 cm (M/F) 1.5-2.5 M-Mode Dimensions RVDd 2.24 cm (0.9-2.6) LA Diam 3.34 cm (1.9-4.0) LVDd 4.60 cm (3.5-5.7) Ao Diam 3.03 cm (2.0-3.7) LVDs 3.69 cm (3.5-5.7) IVSd 0.76 cm (0.6-1.1) PWd 0.99 cm (0.6-1.1) EF (Teich) 40.60% FS 19.80% EDV (Teich) 97.30 mL ESV (Teich) 57.80 mL LV Diastology E Decel Time 237.00 (160-240 msec) E/A Ratio 0.8 MED E' 7.20 (< 7 cm/sec) E'/MED E' Ratio 8.39 (>14) LAT E' 10.00 (<10 cm/sec) E/LAT E' Ratio 6.04 (>14) Mitral Valve MV E Max Chris. 60.00 (40-130 cm/s) MV A Velocity 71.00 (40-130 cm/s) E/A Ratio 0.85 MV Decel. Time 237.00 (160-240 ms) MV PHT 69.00 ms Left Ventricle Left atrium is normal size, left ventricle is normal size, visually estimated ejection fraction 55% with no regional wall motion abnormality, diastolic parameters are within normal range. Right Ventricle Right atrium and right ventricle are normal size and contractility. Aortic Valve Aortic valve is minimally thickened and fibrosed, there is no aortic stenosis or aortic insufficiency. Mitral Valve Mitral valve is grossly normal, there is mild mitral regurgitation. Tricuspid Valve Tricuspid valve grossly normal, there is mild tricuspid regurgitation, tricuspid regurgitation jet velocity is inadequate for calculation of the right ventricular systolic pressure. Pulmonic Valve Pulmonic valve is poorly visualized. Great Vessels Aortic root is normal size. Pericardium No significant pericardial effusion noted. Conclusion 1. Normal left ventricular size, preserved left ventricular systolic function visually estimated ejection fraction 55% with no regional wall motion abnormality, diastolic parameters are within normal range. 2. Mild mitral and tricuspid regurgitation. 3. No significant pericardial effusion noted. Electronically signed by : Nasim Coello, 07/17/2020 18:06:19
== END ==
PROVIDERS: PCP Family Medicine; Visit Provider Family Medicine
DX: R06.02 Shortness of breath (principal)
CPT/HCPCS: 93306

== ENCOUNTER → 2020-09-06 09:19 | Outpatient (CLI) | payer BC, SELFPAY ==
[2020-09-06 09:44] LABS: Basophils # 0.1 K/mm3 (0-0.2); Basophils % 0.9 % (0.1-2.0); Eosinophils # 0.4 K/mm3 (0.0-0.4); Eosinophils % 5.1 % (0.1-12.0); Hematocrit 46.9 % (42.0-52.0); Hemoglobin 15.9 g/dL (14.1-18.0); Lymphocytes # 2.8 K/mm3 (0.7-4.5); Lymphocytes % 36.8 % (10-50); Mean Corpuscular HGB Conc 33.8 g/dL (31.8-35.4); Mean Corpuscular Hemoglobin 29.4 pg (27.0-31.2); Mean Corpuscular Volume 86.9 fl (80-94); Mean Platelet Volume 7.4 fl (7.4-10.4); Monocytes # 0.4 K/mm3 (0.1-1.0); Monocytes % 5.1 % (1.7-9.3); Neutrophils # 3.9 K/mm3 (1.8-7.8); Neutrophils % 52.1 % (37.0-80.0); Platelet Count 279 K/mm3 (142-424); Red Cell Distribution Width 13.5 % (11.5-17.5); White Blood Count 7.5 K/mm3 (4.8-10.8)
[2020-09-06 11:26] LABS: D-Dimer 0.36 ug/mL (0.0-0.5)
[2020-09-06 11:27] LABS: 25-OH Vitamin D, Total 37.2 ng/mL (30-100)
[2020-09-06 11:41] LABS: Thyroid Stimulating Hormone 1.75 uIU/mL (0.465-4.68)
== END ==
PROVIDERS: Visit Provider Internal Medicine Pulmonary Disease
DX: R06.02 Shortness of breath (principal); J45.909 Unspecified asthma, uncomplicated; R53.83 Other fatigue; Z86.16 Personal history of COVID-19
CPT/HCPCS: 36415; 82306; 84443; 85025; 85378

== ENCOUNTER → 2020-09-17 12:31 | Outpatient (CLI) | payer BC, OTHER, SELFPAY ==
[2020-09-17 13:25] VITALS: PULSE 74; PULSE 76
== END ==
PROVIDERS: PCP Family Medicine; Visit Provider Internal Medicine Pulmonary Disease
DX: R06.00 Dyspnea, unspecified (principal)
CPT/HCPCS: 94060; 94640; 94726; 94729

== ENCOUNTER → 2020-11-11 14:08 | Outpatient (CLI) | payer BC, SELFPAY ==
[2020-11-11 15:22] LABS: Erythrocyte Sedimentation Rate 4 mm/hr (0-20)
[2020-11-15 16:46] LABS: Antinuclear Antibodies (ANA) NEGATIVE
== END ==
PROVIDERS: Visit Provider Nurse Practitioner Family
DX: M25.50 Pain in unspecified joint (principal); R53.83 Other fatigue; Z86.16 Personal history of COVID-19; R51.9 Headache, unspecified
CPT/HCPCS: 36415; 85651; 86038

== ENCOUNTER → 2020-11-15 14:55 | Outpatient (CLI) | payer BC, SELFPAY ==
--- NOTE | 2020-11-15 14:55 | MR_ITS ---
PROCEDURE: MR HEAD/BRAIN WO CON CLINICAL INDICATION: eval for JUDICIAL CLERK abnormality WORSENING HEADACHE COMPARISON: No exams were available for comparison TECHNIQUE: Routine multiplanar multi echo sequences are performed without gadolinium enhancement. FINDINGS: NO MIDLINE SHIFT, MASS EFFECT, INTRACRANIAL HEMORRHAGE, OR HYDROCEPHALUS EVIDENT. THE CEREBELLOPONTINE ANGLES, CEREBELLUM, BRAINSTEM AND MID BRAIN HAVE AN UNREMARKABLE APPEARANCE. NO EVIDENCE OF ACUTE INFARCTION. THERE IS GENERALIZED ATROPHY WITH MILD PROMINENCE OF THE LATERAL VENTRICLES WHICH MAY BE RELATED TO EX VACUO DILATATION. THERE A FEW PUNCTATE T2 WHITE MATTER HYPERINTENSITIES NONSPECIFIC. THE PITUITARY, OPTIC CHIASM, CORPUS CALLOSUM, AND CRANIOCERVICAL JUNCTION HAVE AN UNREMARKABLE APPEARANCE. THE HIPPOCAMPAL GYRI UNREMARKABLE. NO MASTOID EFFUSION OR SINUS AIR-FLUID LEVEL. IMPRESSION: NO ACUTE INTRACRANIAL FINDINGS. MILD GENERALIZED ATROPHY Dictated by: Mynor Mcnair MD 11/15/2020 15:56 Mynor Mcnair MD in [facility] 11/15/2020 15:56
== END ==
PROVIDERS: PCP Family Medicine; Visit Provider Specialist
DX: G44.52 New daily persistent headache (NDPH) (principal)
CPT/HCPCS: 70551

== ENCOUNTER → 2020-11-26 19:58 | Outpatient (CLI) | payer BC, SELFPAY | PROVIDERS: PCP Family Medicine; Visit Provider Nurse Practitioner Family | DX: G47.30 Sleep apnea, unspecified (principal); R06.83 Snoring | CPT/HCPCS: 95810 ==

== ENCOUNTER → 2020-12-09 15:40 | Outpatient (CLI) | payer BC, SELFPAY ==
[2020-12-09 16:35] LABS: Erythrocyte Sedimentation Rate 1 mm/hr (0-20)
[2020-12-09 16:41] LABS: Creatine Kinase 40 U/L (55-170); Uric Acid 5.1 mg/dl (3.5-8.5)
[2020-12-12 05:52] LABS: Aldolase 3.7 U/L (3.3-10.3); RA Latex Turbid. <10.0 IU/mL (0.0-13.9)
[2020-12-13 04:10] LABS: Antinuclear Antibodies, IFA Negative (.)
== END ==
PROVIDERS: Visit Provider Specialist
DX: M35.3 Polymyalgia rheumatica (principal); M25.50 Pain in unspecified joint
CPT/HCPCS: 36415; 82085; 82550; 84550; 85651; 86038; 86431

== ENCOUNTER 2021-03-27 14:00 | Outpatient (RCR) | payer BC, OTHER, SELFPAY ==
--- NOTE | 2021-02-28 13:42 | HMH.PTOPEV ---
PT Outpatient Evaluation Rehab PT Outpatient Evaluation Start: 02/28/21 13:27 Freq: Status: Active Protocol: Document 02/28/21 13:27 KAYA (Rec: 02/28/21 13:42 KAYA [id number]) Electronically Signed By Kobe Williamson, PT 02/28/21 13:27 Outpatient Therapy Subjective History Subjective History Pt presents w/post COVID syndrome. Pt reports covid virus contracted in , followed by 1 week in ICU. Pt reports chronic systemic pain, chest tightness/SOB, polyarthralgia, fatigue, insomnia since being diagnosed w/covid-19. 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 Chief Complaint Pain,Stiff,Paresthesia Symptom Type Ache,Throb,Sharp,Dull,Numbness ,Tingling,Shooting Symptoms Relieved By Nothing Symptoms Aggravated By Standing,Physical Activity, Walking Prior Functional Limitations Housework,Sleeping,Standing, Recreation Activity,Walking, Stairs Current Functional Limitations Housework,Sleeping,Standing, Recreation Activity,Walking, Stairs Symptom Description Constant but Variable Level of pain today (0-10) 4 Pain scale - at its best (0-10) 4 Pain scale - at its worst (0-10) 8 Cervical Eval MMT Bilateral Wrist Extension Strength Grade 5 Normal Wrist Flexion Strength Grade 5 Normal Extensor Pollicis Longus Strength Grade 4 Good Finger Abduction Strength Grade 4 Good Shoulder/Elbow Eval Shoulder Objective Measurements Shoulder ROM Bilateral pain with active ROM shoulder exam bilateral standard Shoulder MMT Shoulder Abduction Strength Grade 5 Normal Shoulder Extension Strength Grade 4 Good Shoulder Flexion Strength Grade 5 Normal Shoulder External Rotation Strength 4 Good Grade Shoulder Internal Rotation Strength 5 Normal Grade Elbow Objective Measurements Elbow ROM Bilateral full ROM elbow exam standard bilateral Elbow MMT Elbow Flexion Strength Grade 5 Normal Elbow Extension Strength Grade 5 Normal Hip/Knee Eval MMT bilateral Hip Flexion Strength Grade 4
== END 2021-03-27 14:05 | disposition home or self-care (01) ==
LOC: PT 14:00
PROVIDERS: PCP Family Medicine; Visit Provider Specialist
DX: G93.3 Postviral and related fatigue syndromes (principal)
CPT/HCPCS: 97113; 97163